=== PATIENT | female | born 2000 | race Caucasian/White ===

== ENCOUNTER 2020-12-17 07:48 | Emergency (ER) | payer MEDICAID ==
[~2020-12-17] VITALS: Ht 157.5 cm; Wt 92.5 kg
[2020-12-17 08:01] VITALS: BP_SYST 149
[2020-12-17 08:37] LABS: BASOPHILS % (AUTO) 0.4 % (0.0-2.0); EOSINOPHILS # (AUTO) 0.1 K/uL (0.0-0.4); HEMATOCRIT 37.7 % (36-48); HEMOGLOBIN 12.9 g/dL (12.0-16.0); LYMPHOCYTES % (AUTO) 23.2 % (20.5-51.5); MEAN CORPUSCULAR HEMOGLOBIN 31 pg (27-31); MEAN CORPUSCULAR HGB CONC 34 % (32-36); MEAN CORPUSCULAR VOLUME 91 fL (79.0-98.0); MONOCYTES # (AUTO) 0.5 K/uL (0.0-1.0); MONOCYTES % (AUTO) 5.3 % (1.7-9.3); NEUTROPHILS % (AUTO) 70.1 % (40.0-70.0); PLATELET COUNT (AUTO) 259 K/uL (130-430); RED BLOOD CELL COUNT(AUTO) 4.15 MIL/uL (4.2-6.2); RED CELL DISTRIBUTION WIDTH 13.6 % (9.0-15.0); WHITE BLOOD COUNT (AUTO) 8.5 K/uL (4.5-11.0)
[2020-12-17 09:14] LABS: BILIRUBIN,URINE NEGATIVE (NEGATIVE); BLOOD, URINE 3+ (NEGATIVE); CLARITY/URINE CLEAR (CLEAR); COLOR,URINE YELLOW (YELLOW); GLUCOSE,URINE NEGATIVE (NEGATIVE); KETONES,URINE NEGATIVE (NEGATIVE); LEUKOCYTE ESTERASE ,URINE 1+ (NEGATIVE); NITRITE, URINE POSITIVE (NEGATIVE); PROTEIN URINE TRACE (NEGATIVE); UROBILINOGEN,URINE 0.2 (0.2-1.0)
[2020-12-17 09:58] LABS: CALCIUM 9.1 mg/dL (8.4-11.0); CREATININE 0.57 mg/dL (0.55-1.30); POTASSIUM 3.9 mmol/L (3.5-5.1)
[2020-12-17] MEDS ORDERED: CEPH250C PO (10:12)
[2020-12-17 10:31] VITALS: BP_SYST 149
[2020-12-17 10:32] LABS: BACTERIA,URINE MODERATE /HPF (None Seen); MUCUS,URINE 1+ /LPF (None Seen); WBC,URINE 20-50 /HPF (0-3)
== END 2020-12-17 10:32 | disposition home or self-care (01) ==
LOC: SED 07:48
DX: O20.0 Threatened abortion (principal); O23.41 Unspecified infection of urinary tract in pregnancy, first trimester; Z3A.09 9 weeks gestation of pregnancy; Z79.899 Other long term (current) drug therapy
CPT/HCPCS: 36415; 76801; 76817; 80048; 81000; 81025; 84702; 85025; 86901; 87086; 99284

== ENCOUNTER 2021-01-10 17:34 | Emergency (ER) | payer MEDICAID ==
[~2021-01-10] VITALS: Ht 157.5 cm; Wt 92.5 kg
[~2021-01-10 17:34] MED LIST: CEPH250C PO
[2021-01-10 17:35] VITALS: BP_SYST 132
--- NOTE | 2021-01-10 17:35 | NUR ---
Pt triaged and placed in waiting room.
--- NOTE | 2021-01-10 17:40 | NUR ---
Pt walked in to ER with c/o allergic reaction, noted rash/hives since this morning. Reports being 3 months . Denies any SOB or swelling around the mouth. V/S stable, no acute distress noted.
[2021-01-10] MEDS ORDERED: PRED20TA PO (18:08)
[2021-01-10] MEDS ORDERED: BEN50 PO (18:08)
--- NOTE | 2021-01-10 18:15 | NUR ---
ER Dr. Mcarthur at bedside examining patient.
--- NOTE | 2021-01-10 18:40 | NUR ---
Patient given written and verbal discharge instructions and verbalizes understanding. ER MD discussed with patient the results and treatment provided. Patient in stable condition. ID arm band removed. Rx of Benadryl and Prednisone given. Patient educated on pain management and to follow up with PMD. Pain Scale 0. Opportunity for questions provided and answered. Medication side effect fact sheet provided.
[2021-01-10 18:45] VITALS: BP_SYST 132
== END 2021-01-10 18:40 | disposition home or self-care (01) ==
LOC: SED 17:34
DX: O26.891 Other specified pregnancy related conditions, first trimester (principal); L50.9 Urticaria, unspecified; Z3A.12 12 weeks gestation of pregnancy; Z79.899 Other long term (current) drug therapy
CPT/HCPCS: 99283

== ENCOUNTER 2021-05-11 21:42 | Emergency (ER) | payer MEDICAID ==
[~2021-05-11] VITALS: Ht 157.5 cm; Wt 95.3 kg
[~2021-05-11 21:42] MED LIST changes: +BEN50 PO; +PRED20TA PO
[2021-05-11 22:26] VITALS: BP_SYST 132
[2021-05-11] MEDS ORDERED: DIPHENHYDRAMINE INJ 50 MG/ML VIAL ONE (23:52)
[2021-05-12] MEDS ORDERED: DIPHENHYDRAMINE INJ 50 MG/ML VIAL IM ONE
[2021-05-12] MEDS ORDERED: ACET12.55 PO (00:42)
[2021-05-12] MEDS ORDERED: AMOX1TAB14 PO (00:42)
[2021-05-12 00:47] VITALS: BP_SYST 128
== END 2021-05-12 00:47 | disposition home or self-care (01) ==
LOC: SED 21:42
DX: O99.713 Diseases of the skin and subcutaneous tissue complicating pregnancy, third trimester (principal); L02.411 Cutaneous abscess of right axilla; Z79.899 Other long term (current) drug therapy; Z3A.29 29 weeks gestation of pregnancy
CPT/HCPCS: 10060; 96372; 99283; J1200

== ENCOUNTER 2021-05-13 22:11 | Emergency (ER) | payer MEDICAID ==
[~2021-05-13] VITALS: Ht 165.1 cm; Wt 79.4 kg
[~2021-05-13 22:11] MED LIST changes: +ACET12.55 PO; +AMOX1TAB14 PO
[2021-05-13 22:19] VITALS: BP_SYST 121
[2021-05-14 00:09] VITALS: BP_SYST 121
== END 2021-05-14 00:09 | disposition home or self-care (01) ==
LOC: SED 22:11
DX: O99.713 Diseases of the skin and subcutaneous tissue complicating pregnancy, third trimester (principal); L02.411 Cutaneous abscess of right axilla; Z3A.29 29 weeks gestation of pregnancy
CPT/HCPCS: 99282

== ENCOUNTER 2021-05-15 22:52 | Emergency (ER) | payer MEDICAID ==
[~2021-05-15] VITALS: Ht 157.5 cm; Wt 96.2 kg
[2021-05-15 23:04] VITALS: BP_SYST 130
[2021-05-15 23:49] VITALS: BP_SYST 130
== END 2021-05-15 23:49 | disposition home or self-care (01) ==
LOC: SED 22:52
DX: L02.411 Cutaneous abscess of right axilla (principal); Z48.817 Encounter for surgical aftercare following surgery on the skin and subcutaneous tissue; Z79.899 Other long term (current) drug therapy
CPT/HCPCS: 99282

== ENCOUNTER 2021-05-18 22:28 | Emergency (ER) | payer MEDICAID ==
[~2021-05-18] VITALS: Ht 157.5 cm; Wt 95.3 kg
[2021-05-18 22:35] VITALS: BP_SYST 120
--- NOTE | 2021-05-18 22:37 | NUR ---
ER DR CHRISTINA at bedside examining patient and performing wound care. Patient tolerated proceedure, no c/o pain or s/s of discomfort.
--- NOTE | 2021-05-18 22:37 | NUR ---
Patient to ER bed 2 to gown for evaluation. Side rails up. Report given to DEMARIO CHI(REG).
--- NOTE | 2021-05-18 23:36 | NUR ---
PATIENT A/OX4. PATIENT IS LYING IN BED, RESTING CALMLY, NO C/O PAIN OR S/S OF DISTRESS. PATIENT CHEST RISE AND FALL SYMMETRICAL. PATIENT RESTING COMFORTABLY, BED IN LOW AND LOCKED POSITION, 3 BED RAILS UP.
[2021-05-19] MEDS ORDERED: BACI15OI13 TP (00:15)
[2021-05-19 00:51] VITALS: BP_SYST 115
--- NOTE | 2021-05-19 00:52 | NUR ---
Patient given written and verbal discharge instructions and verbalizes understanding. ER MD Dr. Escobar discussed with patient the results and treatment provided. Patient is a/Ox4, and in stable condition. ID arm band removed. No active bleeding to woundcare site. Patient educated on pain management and to follow up with PMD. Pain Scale 0/10. Opportunity for questions provided and answered. Patient left with all belongings, discharge paperwork, and patient walks with strong gait.
--- NOTE | 2021-05-19 00:52 | NUR ---
Note anirudhportia in EDM - 05/19/21 at 0546 by [email or web address] PATIENT IS A/OX4. PATIENT VERBALIZED UNDERSTANDING OF DISCHARGE EDUCATION, NO FURTHER QUESTIONS. PATIENT LEFT WITH ALL BELONGINGS, AND ALL DISCHARGE PEPERWORK. PATIENT WALKS WITH STRONG GAIT.
== END 2021-05-19 00:51 | disposition home or self-care (01) ==
LOC: SED 22:28
DX: L02.411 Cutaneous abscess of right axilla (principal); J45.909 Unspecified asthma, uncomplicated; Z79.899 Other long term (current) drug therapy; Z48.817 Encounter for surgical aftercare following surgery on the skin and subcutaneous tissue
CPT/HCPCS: 99282